=== PATIENT | male | born 1950 | race Caucasian/White ===

== ENCOUNTER 2018-08-27 19:58 | Inpatient (IN) | payer MEDICARE, OTHER | END 2018-08-29 17:42 | disposition E | LOC: ED HOLD 08-28 01:27 → ER 19:58 → PACU 08-28 08:00 → CICU 2S 08-28 09:35 | PROC: 0DBK0ZZ Excision of Ascending Colon, Open Approach (ICD-10-PCS; principal; 2018-08-28 05:35) | PROC: 0DBL0ZZ Excision of Transverse Colon, Open Approach (ICD-10-PCS; 2018-08-28 05:35) | PROC: 0DBB0ZZ Excision of Ileum, Open Approach (ICD-10-PCS; 2018-08-28 05:35) | PROC: 0D1B0Z4 Bypass Ileum to Cutaneous, Open Approach (ICD-10-PCS; 2018-08-28 05:35) | DX: A41.9 Sepsis, unspecified organism (principal); K56.2 Volvulus; K63.1 Perforation of intestine (nontraumatic); Q43.3 Congenital malformations of intestinal fixation; K63.0 Abscess of intestine ==